=== PATIENT | male | born 1965 | race Caucasian/White ===

== ENCOUNTER 2016-10-18 12:17 | Emergency (ER) | payer SELFPAY ==
[~2016-10-18] VITALS: Ht 180.3 cm; Wt 76.4 kg
[~2016-10-18 12:17] MED LIST: DICL-86 PO; Z.0.NO CURRENT MEDS
[2016-10-18] MEDS ORDERED: SERO50TA PO ×2 (12:30→14:39)
[2016-10-18 12:31] VITALS: BP 176/107; PULSE 84; RESP 16; TEMP 99; O2SAT 96
[2016-10-18] MEDS ORDERED: LABETALOL HCL 100 MG/20 ML VIAL IV PUSH ONE (13:15)
--- NOTE | 2016-10-18 13:26 | PD ---
HPI Chief Complaint: Headache Time Seen by Provider: 12:58 Travel History International Travel<30 days: No Contact w/Intl Traveler<30days: No Traveled to known affect area: No History of Present Illness HPI 50-year-old male complains of headache and elevated blood pressure. Patient has history of pituitary tumor and hypertension. Patient status post pituitary surgery 12 years ago and again 9 months ago in [place]. Patient recently moved to the area. Patient states that he started experiencing Sharp shooting headache for the past 2 months. Patient states that headache is diffuse over the head. Patient denies any new visual change. Patient states that he has a black spot on the right visual lyons that presents the past 10 years and nothing new. Patient denies any neck pain. Patient denies any chest pain or shortness of breath. Patient denies abdominal pain. Patient denies any focal weakness and numbness of extremity. Patient denies any nausea vomiting. Patient has history seizure subsequently after surgery. Patient has been taking Seroquel occasionally. Patient was on alprazolam, lisinopril and oxycodone the past however has not taken those medications for the past year. Patient denies any recent head injury. [facility] Past Medical History Immunizations Current: No Influenza Vaccination: No Past Surgical History Neurologic Surgery: Yes (BRAIN TUMOR ON PITUITARY PARTIALLY REMOVED) Thoracic Surgery: Yes (IMPIEMA -APPROX 2-3 YRS. AGO) Other Surgery: Yes (PITUITARY GLAND SURG, ) Social History Alcohol Use: No Tobacco Use: Yes (1 PPD) Substance Use: No (QUIT SMOKED CRACK APPROX 9 MONTHS AGO. SMOKED X 25 YRS.) Allergies-Medications (Allergen,Severity, Reaction): Coded Allergies: Demerol (Verified Adverse Reaction, Intermediate, NAUSEA/VOMITING, 06/11/10 ) Reported Meds & Prescriptions Reported Meds & Active Scripts Active Reported Seroquel (Quetiapine Fumarate) 50 Mg Tab 50 Mg PO BID Review of Systems General / Constitutional: No: Fever Eyes: No: Visual changes HENT: Positive: Headaches Cardiovascular: No: Chest Pain or Discomfort Respiratory: No: Shortness of Breath Gastrointestinal: No: Abdominal Pain Genitourinary: No: Dysuria Musculoskeletal: No: Pain Skin: No Rash Neurologic: No: Weakness Psychiatric: No: Depression Endocrine: No: Polydipsia Hematologic/Lymphatic: No: Easy Bruising Physical Exam Narrative GENERAL: Well-nourished, well-developed patient. SKIN: Focused skin assessment warm/dry. HEAD: Normocephalic. EYES: No scleral icterus. No injection or drainage. Pupils 3 mm equal reactive. NECK: Supple, trachea midline. No JVD or lymphadenopathy. CARDIOVASCULAR: Regular rate and rhythm without murmurs, gallops, or rubs. RESPIRATORY: Breath sounds equal bilaterally. No accessory muscle use. GASTROINTESTINAL: Abdomen soft, non-tender, nondistended. MUSCULOSKELETAL: No cyanosis, or edema. BACK: Nontender without obvious deformity. No CVA tenderness. Neurologic exam: Patient's awake and alert oriented 3. No obvious focal neurological deficit. Data Data Last Documented VS Vital Signs Date Time Temp Pulse Resp B/P Pulse Ox O2 Delivery O2 Flow Rate FiO2 10/18/16 14:02 68 16 158/98 98 Room Air 10/18/16 12:31 99.0 Orders Complete Blood Count With Diff (10/18/16 13:07) Basic Metabolic Panel (Bmp) (10/18/16 13:07) Prothrombin Time / Inr (Pt) (10/18/16 13:07) Act Partial Throm Time (Ptt) (10/18/16 13:07) Ct Brain W/O Iv Contrast(Rout) (10/18/16 13:07) Iv Access Insert/Monitor (10/18/16 13:07) Ecg Monitoring (10/18/16 13:07) Oximetry (10/18/16 13:07) Labetalol Inj (Trandate Inj) (10/18/16 13:15) Labs Laboratory Tests Test 10/18/16 13:20 White Blood Count 9.6 TH/MM3 Red Blood Count 5.62 MIL/MM3 Hemoglobin 15.5 GM/DL Hematocrit 46.5 % Mean Corpuscular Volume 82.7 FL Mean Corpuscular Hemoglobin 27.6 PG Mean Corpuscular Hemoglobin 33.4 % Concent Red Cell Distribution Width 13.6 % Platelet Count 248 TH/MM3 Mean Platelet Volume 7.8 FL Neutrophils (%) (Auto) 64.8 % Lymphocytes (%) (Auto) 24.7 % Monocytes (%) (Auto) 7.7 % Eosinophils (%) (Auto) 1.6 % Basophils (%) (Auto) 1.2 % Neutrophils # (Auto) 6.2 TH/MM3 Lymphocytes # (Auto) 2.4 TH/MM3 Monocytes # (Auto) 0.7 TH/MM3 Eosinophils # (Auto) 0.2 TH/MM3 Basophils # (Auto) 0.1 TH/MM3 CBC Comment DIFF FINAL Differential Comment Prothrombin Time 10.5 SEC Prothromb Time International 1.0 RATIO Ratio Activated Partial 28.1 SEC Thromboplast Time Sodium Level 139 MEQ/L Potassium Level 4.3 MEQ/L Chloride Level 105 MEQ/L Carbon Dioxide Level 28.5 MEQ/L Anion Gap 6 MEQ/L Blood Urea Nitrogen 11 MG/DL Creatinine 1.10 MG/DL Estimat Glomerular Filtration 70 ML/MIN Rate Random Glucose 83 MG/DL Calcium Level 8.7 MG/DL MDM Medical Decision Making Medical Screen Exam Complete: Yes Emergency Medical Condition: Yes Interpretation(s) 1431 PM. Last [address] Head [address] 10/18/16 1307 Signed Impressions: Service Date/Time: Tuesday, October 18, 2016 13:56 - CONCLUSION: 1. No acute intracranial abnormality is identified. Chronic changes include generalized atrophy and periventricular white matter change characteristic of chronic microvascular ischemia. There also old lacunes in the basal ganglia. 2. Abnormal shape of the sella turcica and low-density material in the sella turcica and sphenoid sinus. The history provided indicates primary pituitary mass and surgery. Therefore, these findings are likely related to that clinical history. It would be ideal to correlate with prior outside imaging studies to confirm stability of this appearance. If none are available, suggest followup to confirm stability. 3. Absence of the nasal septum likely related to the prior surgery. Kristian Recinos MD 1433 PM. CBC within normal limit. BMP within normal limit. Differential Diagnosis Differential diagnosis including tension headache, cluster headache, migraine headache, recurrence pituitary tumor, uncontrolled hypertension, hypertensive emergency, hypertensive crisis. Narrative Course 50-year-old male with headache. History of pituitary tumor status post brain surgery 2 in the past. History hypertension and seizure. Patient has been noncompliant with his medication. Labetalol 10 mg IV given. Diagnosis Primary Impression: Cephalgia Qualified Code: R51 - Nonintractable episodic headache, unspecified headache type Additional Impression: Uncontrolled hypertension Patient Instructions: General Instructions Additional Instructions: Take medication as directed. Follow-up with local physician and neurologist. Return if worse. Med/Other Pt SpecificInfo: Prescription(s) given Scripts Buqhyswlqq-Bwfdznpaeqnul-Vfmrzysn (Fioricet)50-300-40 Mg Cap1-2 Cap PO Q6H PRN ( HEADACHE) #30 CAP Ref 0 Prov:Dillon Greene MD 10/18/16 Lisinopril 10 Mg Tab10 Mg PO DAILY #30 TAB Ref 0 Prov:Dillon Greene MD 10/18/16 Quetiapine (Seroquel)50 Mg Tab50 Mg PO BID #60 TAB Ref 0 Prov:Dillon Greene MD 10/18/16 Disposition: 01 DISCHARGE HOME Condition: Stable Dillon Greene MD Oct 18, 2016 13:25
[2016-10-18 13:33] LABS: AUTOMATED NEUTROPHIL # 6.2 TH/MM3 (1.8-7.7); BASOPHIL # 0.1 TH/MM3 (0-0.2); BASOPHIL % 1.2 % (0.0-2.0); EOSINOPHIL # 0.2 TH/MM3 (0-0.4); EOSINOPHIL % 1.6 % (0.0-4.0); HEMATOCRIT 46.5 % (39.0-51.0); HEMO FLAGS DIFF FINAL; LYMPH % 24.7 % (9.0-44.0); LYMPHOCYTE # 2.4 TH/MM3 (1.0-4.8); MEAN CELL VOLUME 82.7 FL (80.0-100.0); MEAN CORPUSCULAR HEMOGLOBIN 27.6 PG (27.0-34.0); MEAN CORPUSCULAR HGB CONC 33.4 % (32.0-36.0); MONO % 7.7 % (0.0-8.0); NEUT % 64.8 % (16.0-70.0); PLATELET COUNT 248 TH/MM3 (150-450); RED BLOOD COUNT 5.62 MIL/MM3 (4.50-5.90); RED CELL DISTRIBUTION WIDTH 13.6 % (11.6-17.2); WHITE BLOOD COUNT 9.6 TH/MM3 (4.0-11.0)
[2016-10-18 13:39] VITALS: RESP 16; O2SAT 95
[2016-10-18 13:39] LABS: POTASSIUM 4.3 MEQ/L (3.5-5.1)
[2016-10-18 13:40] VITALS: BP 156/103; PULSE 76; RESP 16; O2SAT 98
[2016-10-18 13:42] LABS: BICARBONATE 28.5 MEQ/L (21.0-32.0)
[2016-10-18 13:45] LABS: APTT (PATIENT) 28.1 SEC (24.3-30.1); PROTHROMBIN TIME - PATIENT 10.5 SEC (9.8-11.6)
[2016-10-18 14:02] VITALS: BP 158/98; PULSE 68; RESP 16; O2SAT 98
--- NOTE | 2016-10-18 14:23 | RADRPT ---
EXAM DATE/TIME: 10/18/2016 13:56 [facility] COMPARISON: No previous studies available for comparison. INDICATIONS : Cephalgia x 2 months. RADIATION DOSE: 60.26 CTDIvol (mGy) MEDICAL HISTORY : Hypertension. Pituitary mass. SURGICAL HISTORY : Pituitary mass removed. ENCOUNTER: Initial ACUITY: 2 months PAIN SCALE: 7/10 LOCATION: cranial TECHNIQUE: Multiple contiguous axial images were obtained of the head. Using automated exposure control and adj ustment of the mA and/or kV according to patient size, radiation dose was kept as low as reasonably a chievable to obtain optimal diagnostic quality images. DICOM format image data is available electro nically for review and comparison. FINDINGS: CEREBRUM: There is mild generalized atrophy. Ventricles are normal in size. There is mild periventricular white matter low attenuation with old lacune's bilaterally. The sella turcica has an abnormal shape with o sseous remodeling. There is low-density material in the region of the sella turcica and sphenoid sinu s. Otherwise, no midline shift, mass lesion, hemorrhage or acute infarction. No extra-axial fluid co llections are seen. POSTERIOR FOSSA: The cerebellum and brainstem demonstrate no acute finding. The 4th ventricle is midline. The cerebe llopontine angle is unremarkable. EXTRACRANIAL: There is opacity in the sphenoid sinus that is mostly low in density. SKULL: The calvaria is intact. No evidence of skull fracture. CONCLUSION: 1. No acute intracranial abnormality is identified. Chronic changes include generalized atrophy and p eriventricular white matter change characteristic of chronic microvascular ischemia. There also old l acunes in the basal ganglia. 2. Abnormal shape of the sella turcica and low-density material in the sella turcica and sphenoid sin us. The history provided indicates primary pituitary mass and surgery. Therefore, these findings are likely related to that clinical history. It would be ideal to correlate with prior outside imaging st udies to confirm stability of this appearance. If none are available, suggest followup to confirm sta bility. 3. Absence of the nasal septum likely related to the prior surgery. Kristian Recinos MD on October 18, 2016 at 14:16 Board Certified Radiologist. This report was verified electronically.
[2016-10-18] MEDS ORDERED: LISI10TA3 PO (14:39)
[2016-10-18] MEDS ORDERED: BUTA1CAP PO (14:39)
[2016-10-18 14:57] VITALS: BP 158/90; PULSE 66; RESP 16; O2SAT 96
== END 2016-10-18 15:03 | disposition home or self-care (01) ==
LOC: PHED 12:17
DX: R51 Headache (principal); I10 Essential (primary) hypertension; F17.200 Nicotine dependence, unspecified, uncomplicated; R56.9 Unspecified convulsions; Z91.14 Patient's other noncompliance with medication regimen
CPT/HCPCS: 70450; 80048; 85025; 85610; 85730; 96374

== ENCOUNTER 2017-03-17 02:04 | Emergency (ER) | payer SELFPAY ==
[~2017-03-17] VITALS: Ht 180.3 cm; Wt 78.6 kg
[~2017-03-17 02:04] MED LIST changes: +BUTA1CAP PO; -DICL-86 PO; +LISI10TA3 PO; +SERO50TA PO; -Z.0.NO CURRENT MEDS
[2017-03-17 02:11] VITALS: BP 201/118; PULSE 98; RESP 12; TEMP 97.1; O2SAT 98
--- NOTE | 2017-03-17 02:25 | PD ---
HPI Chief Complaint: ABD PAIN Time Seen by Provider: 02:21 Travel History International Travel<30 days: No Contact w/Intl Traveler<30days: No Traveled to known affect area: No History of Present Illness HPI C/O ACUTE ONSET ABDOMINAL PAIN, 2 HRS AGO, DIFFUSE ABD PAIN, ASSOCIATED NAUSEA/ VOMITING WITHOUT DIARRHEA. NO ALLEVIATING OR AGGRAVATING FACTORS. NO PCP ALL:DEMEROL PMHX:EMPYEMA AND PITUITARY TUMOR PARTIALLY RESECTED PFSH Past Medical History Immunizations Current: No Past Surgical History Neurologic Surgery: Yes (BRAIN TUMOR ON PITUITARY PARTIALLY REMOVED) Thoracic Surgery: Yes (IMPIEMA -APPROX 2-3 YRS. AGO) Other Surgery: Yes (PITUITARY GLAND SURG, ) Social History Alcohol Use: No Tobacco Use: Yes (1 PPD) Substance Use: No (QUIT SMOKED CRACK APPROX 9 MONTHS AGO. SMOKED X 25 YRS.) Allergies-Medications (Allergen,Severity, Reaction): Coded Allergies: meperidine (Unverified Adverse Reaction, Intermediate, NAUSEA/VOMITING, ) Reported Meds & Prescriptions Reported Meds & Active Scripts Active Zofran Odt (Ondansetron Odt) 4 Mg Tab 4 Mg SL Q6HR PRN Ultram (Tramadol HCl) 50 Mg Tab 50 Mg PO Q6H PRN Review of Systems General / Constitutional: No: Fever Eyes: No: Visual changes HENT: No: Headaches Cardiovascular: No: Chest Pain or Discomfort Respiratory: No: Shortness of Breath Gastrointestinal: Positive: Nausea, Vomiting, Abdominal Pain Genitourinary: No: Dysuria Musculoskeletal: No: Pain Skin: No Rash Neurologic: No: Weakness Psychiatric: No: Depression Endocrine: No: Polydipsia Hematologic/Lymphatic: No: Easy Bruising Physical Exam Narrative GENERAL: SKIN: Warm and dry. HEAD: Atraumatic. Normocephalic. EYES: Pupils equal and round. No scleral icterus. No injection or drainage. ENT: No nasal bleeding or discharge. Mucous membranes pink and moist. NECK: Trachea midline. No JVD. CARDIOVASCULAR: Regular rate and rhythm. RESPIRATORY: No accessory muscle use. Clear to auscultation. Breath sounds equal bilaterally. GASTROINTESTINAL: Abdomen soft, MILDLY TTP, nondistended. . MUSCULOSKELETAL: Extremities without clubbing, cyanosis, or edema. No obvious deformities. NEUROLOGICAL: Awake and alert. No obvious cranial nerve deficits. Motor grossly within normal limits. Five out of 5 muscle strength in the arms and legs. Normal speech. PSYCHIATRIC: Appropriate mood and affect; insight and judgment normal. Data Data Last Documented VS Vital Signs Date Time Temp Pulse Resp B/P (MAP) Pulse Ox O2 Delivery O2 Flow Rate FiO2 03/17/17 02:51 82 20 199/114 (142) 100 Room Air 03/17/17 02:29 97.1 Orders Orders Complete Blood Count With Diff (03/17/17 02:39) Comprehensive Metabolic Panel (03/17/17 02:39) Lipase (03/17/17 02:39) Ct Abd/Pel W/O Iv Contrast (03/17/17 02:39) Iv Access Insert/Monitor (03/17/17 02:39) Ecg Monitoring (03/17/17 02:39) Oximetry (03/17/17 02:39) NPO (03/17/17 02:39) Morphine Inj (Morphine Inj) (03/17/17 02:45) Ondansetron Inj (Zofran Inj) (03/17/17 02:45) Sodium Chlor 0.9% 1000 Ml Inj (Ns 1000 M (03/17/17 02:39) Hydralazine Inj (Apresoline Inj) (03/17/17 03:30) Famotidine Inj (Pepcid Inj) (03/17/17 03:45) Dicyclomine Inj (Bentyl Inj) (03/17/17 03:45) Labs Laboratory Tests Test 03/17/17 03:01 White Blood Count 10.7 TH/MM3 Red Blood Count 5.79 MIL/MM3 Hemoglobin 16.1 GM/DL Hematocrit 49.5 % Mean Corpuscular Volume 85.6 FL Mean Corpuscular Hemoglobin 27.8 PG Mean Corpuscular Hemoglobin Concent 32.4 % Red Cell Distribution Width 14.0 % Platelet Count 227 TH/MM3 Mean Platelet Volume 8.2 FL Neutrophils (%) (Auto) 74.4 % Lymphocytes (%) (Auto) 16.5 % Monocytes (%) (Auto) 7.0 % Eosinophils (%) (Auto) 1.1 % Basophils (%) (Auto) 1.0 % Neutrophils # (Auto) 8.0 TH/MM3 Lymphocytes # (Auto) 1.8 TH/MM3 Monocytes # (Auto) 0.7 TH/MM3 Eosinophils # (Auto) 0.1 TH/MM3 Basophils # (Auto) 0.1 TH/MM3 CBC Comment DIFF FINAL Differential Comment Blood Urea Nitrogen 12 MG/DL Creatinine 1.30 MG/DL Random Glucose 107 MG/DL Total Protein 8.7 GM/DL Albumin 4.3 GM/DL Calcium Level 9.7 MG/DL Alkaline Phosphatase 116 U/L Aspartate Amino Transf (AST/SGOT) 19 U/L Alanine Aminotransferase (ALT/SGPT) 32 U/L Total Bilirubin 0.4 MG/DL Sodium Level 136 MEQ/L Potassium Level 3.7 MEQ/L Chloride Level 102 MEQ/L Carbon Dioxide Level 24.0 MEQ/L Anion Gap 10 MEQ/L Estimat Glomerular Filtration Rate 58 ML/MIN Lipase 156 U/L [facility] Medical Decision Making Medical Screen Exam Complete: Yes Emergency Medical Condition: Yes Medical Record Reviewed: Yes Differential Diagnosis GASTROENTERITIS V COLITIS V DIVERTIC Narrative Course NL ELECTROLYTES, NL RENAL /PANCREAS/LIVER FUNCTIONS, CT NEG FOR COLITIS/ DIVERTIC AND ONLY POSITIVE FOR RENAL CYST WHICH WERE NOT INVOLVED IN CAUSING PATIENT'S SYMPTOMS. Diagnosis Primary Impression: Gastroenteritis Additional Impression: HYPERTENSION -NONCOMPLIANT Patient Instructions: Full Liquid Diet (DC), Gastroenteritis (ED), General Instructions Scripts Ondansetron Odt (Zofran Odt) 4 Mg Tab 4 MG SL Q6HR Y for Nausea/Vomiting, #20 TAB 0 Refills Prov: Cole Ny MD 03/17/17 Tramadol (Ultram) 50 Mg Tab 50 MG PO Q6H Y for PAIN, #12 TAB 0 Refills Prov: Cole Ny MD 03/17/17 Disposition: 01 DISCHARGE HOME Condition: Stable Cole Ny MD Mar 17, 2017 02:25
[2017-03-17 02:29] VITALS: BP 201/118; PULSE 99; RESP 20; TEMP 97.1; O2SAT 99
[2017-03-17] MEDS ORDERED: SODIUM CHLOR 0.9% 1000 ML INJ 1,000 ML IV SCH (02:39)
[2017-03-17] MEDS ORDERED: MORPHINE SULFATE 4 MG/ML INJ IV PUSH ONE (02:45)
[2017-03-17] MEDS ORDERED: ONDANSETRON HCL 4 MG/2 ML VIAL IVP ONE (02:45)
[2017-03-17 02:50] VITALS: RESP 20; O2SAT 100
[2017-03-17 02:51] VITALS: BP 199/114; PULSE 82; RESP 20; O2SAT 100
[2017-03-17 03:13] LABS: BASOPHIL # 0.1 TH/MM3 (0-0.2); EOSINOPHIL # 0.1 TH/MM3 (0-0.4); EOSINOPHIL % 1.1 % (0.0-4.0); HEMATOCRIT 49.5 % (39.0-51.0); HEMOGLOBIN 16.1 GM/DL (13.0-17.0); LYMPH % 16.5 % (9.0-44.0); LYMPHOCYTE # 1.8 TH/MM3 (1.0-4.8); MEAN CELL VOLUME 85.6 FL (80.0-100.0); MEAN CORPUSCULAR HEMOGLOBIN 27.8 PG (27.0-34.0); MEAN CORPUSCULAR HGB CONC 32.4 % (32.0-36.0); MEAN PLATELET VOLUME 8.2 FL (7.0-11.0); MONOCYTE # 0.7 TH/MM3 (0-0.9); NEUT % 74.4 % (16.0-70.0); PLATELET COUNT 227 TH/MM3 (150-450); RED BLOOD COUNT 5.79 MIL/MM3 (4.50-5.90); WHITE BLOOD COUNT 10.7 TH/MM3 (4.0-11.0)
[2017-03-17 03:18] LABS: CHLORIDE 102 MEQ/L (98-107); SODIUM (NA) 136 MEQ/L (136-145)
--- NOTE | 2017-03-17 03:20 | RADRPT ---
EXAM DATE/TIME: 03/17/2017 02:50 [facility] COMPARISON: No previous studies available for comparison. INDICATIONS : Calculi. Umbilical pain. ORAL CONTRAST: No oral contrast ingested. RADIATION DOSE: 12.71 CTDIvol (mGy) MEDICAL HISTORY : None SURGICAL HISTORY : None. ENCOUNTER: Initial ACUITY: 1 day PAIN SCALE: 9/10 LOCATION: Umbilical TECHNIQUE: Volumetric scanning of the abdomen and pelvis was performed. Using automated exposure control and ad justment of the mA and/or kV according to patient size, radiation dose was kept as low as reasonably achievable to obtain optimal diagnostic quality images. DICOM format image data is available electro nically for review and comparison. FINDINGS: LOWER LUNGS: The visualized lower lungs are clear. LIVER: Homogeneous density without lesion. There is no dilation of the biliary tree. No calcified gallston es. SPLEEN: Normal size without lesion. PANCREAS: Within normal limits. KIDNEYS: There is a 1.8 cm low density mass at the posterior inferior right kidney and a 0.8 cm low-density ma ss in the posterior mid right kidney. No renal stones or hydronephrosis is seen on either side. ADRENAL GLANDS: Within normal limits. VASCULAR: There is no aortic aneurysm. Arterial calcifications are seen throughout. BOWEL/MESENTERY: There are few scattered colonic diverticula especially in sigmoid region without significant inflamma tory change. There is no free intraperitoneal air or fluid. The appendix appears normal. ABDOMINAL WALL: Within normal limits. RETROPERITONEUM: There is no lymphadenopathy. BLADDER: No wall thickening or mass. REPRODUCTIVE: Within normal limits. INGUINAL: There is no lymphadenopathy or hernia. MUSCULOSKELETAL: There is some degenerative change in lumbar spine. There is a 1.2 cm focal sclerotic area seen at the superior pubic rami on the left. This is nonspecific. It may represent a bone island. CONCLUSION: 1. No acute abnormality is seen. 2. Right renal masses. These are nonspecific. Statistically, they likely represent cysts but cannot b e further characterized on this noncontrast CT examination. Kristian Harding MD on March 17, 2017 at 3:13 Board Certified Radiologist. This report was verified electronically.
[2017-03-17 03:22] LABS: ALBUMIN 4.3 GM/DL (3.4-5.0); CALCIUM 9.7 MG/DL (8.5-10.1); GLUCOSE,RANDOM 107 MG/DL (74-106); LIPASE 156 U/L (73-393)
[2017-03-17 03:23] LABS: BLOOD UREA NITROGEN 12 MG/DL (7-18)
[2017-03-17 03:25] LABS: ALT (GPT) 32 U/L (12-78); AST (GOT) 19 U/L (15-37); GLOMERULAR FILTRATION RATE 58 ML/MIN (>89)
[2017-03-17 03:27] LABS: TOTAL BILIRUBIN ADULT 0.4 MG/DL (0.2-1.0); TOTAL PROTEIN 8.7 GM/DL (6.4-8.2)
[2017-03-17 03:28] LABS: ALKALINE PHOSPHATASE 116 U/L (45-117)
[2017-03-17] MEDS ORDERED: hydrALAZINE HCL 20 MG/ML VIAL IV PUSH ONE ×2 (03:30→04:00)
[2017-03-17] MEDS ORDERED: TRAM50 PO (03:31)
[2017-03-17] MEDS ORDERED: ZOFR4TAB3 SL (03:31)
[2017-03-17] MEDS ORDERED: FAMOTIDINE 20 MG/2 ML VIAL IV PUSH ONE (03:45)
[2017-03-17] MEDS ORDERED: DICYCLOMINE HCL 20 MG/2 ML VIAL IM ONE (03:45)
[2017-03-17 03:47] VITALS: BP 183/103; PULSE 87; RESP 18; O2SAT 100
[2017-03-17] MEDS ORDERED: METOCLOPRAMIDE HCL 10 MG/2 ML VIAL IV PUSH ONE (04:30)
[2017-03-17 04:32] VITALS: BP 183/112; PULSE 107; RESP 18; O2SAT 98
== END 2017-03-17 04:39 | disposition home or self-care (01) ==
LOC: PHED 02:04
DX: K52.9 Noninfective gastroenteritis and colitis, unspecified (principal); I10 Essential (primary) hypertension; Z91.19 Patient's noncompliance with other medical treatment and regimen; Z72.0 Tobacco use
CPT/HCPCS: 74176; 80053; 83690; 85025; 96361; 96372; 96374; 96375; 99285; J0360; J0500; J2270; J2405; J2765; J7030